=== PATIENT | female | born 1975 | race African-American/Black ===

== ENCOUNTER 2018-05-18 10:36 | Emergency (ER) | payer OTHER ==
[~2018-05-18] VITALS: Ht 167.6 cm; Wt 85.3 kg
--- NOTE | 2018-05-18 10:45 | NUR ---
Placed in room 4.
[2018-05-18 10:46] VITALS: BP_SYST 146
--- NOTE | 2018-05-18 10:55 | NUR ---
Pt presents to ER c/o episode of sudden-onset dizziness today while at work. Pt describes the dizziness as light-headedness and fatigue. Pt states that her symptoms have since resolved. Pt reports that this happened a month ago. Pt denies any palpitations, chest pain, shortness of breath, fevers, chills, nausea, vomiting, recent travel, or sick contacts.
--- NOTE | 2018-05-18 11:55 | NUR ---
ER Dr. Petty at bedside examining patient.
[2018-05-18 12:14] LABS: BILIRUBIN,URINE NEGATIVE (NEGATIVE); BLOOD, URINE TRACE (NEGATIVE); CLARITY/URINE CLEAR (CLEAR); COLOR,URINE YELLOW (YELLOW); GLUCOSE,URINE NEGATIVE (NEGATIVE); KETONES,URINE TRACE (NEGATIVE); LEUKOCYTE ESTERASE ,URINE NEGATIVE (NEGATIVE); NITRITE, URINE NEGATIVE (NEGATIVE); PROTEIN URINE NEGATIVE (NEGATIVE); UROBILINOGEN,URINE 0.2 (0.2-1.0)
[2018-05-18 12:29] LABS: HEMATOCRIT 40.6 % (36-48); LYMPHOCYTES % (AUTO) 24.7 % (20.5-51.5); MEAN CORPUSCULAR HEMOGLOBIN 24 pg (27-31); MEAN CORPUSCULAR HGB CONC 32 % (32-36); MEAN CORPUSCULAR VOLUME 75 fL (79.0-98.0); NEUTROPHILS % (AUTO) 68.4 % (40.0-70.0); PLATELET COUNT (AUTO) 399 K/uL (130-430); RED BLOOD CELL COUNT(AUTO) 5.43 MIL/uL (4.2-6.2); RED CELL DISTRIBUTION WIDTH 15.1 % (9.0-15.0); WHITE BLOOD COUNT (AUTO) 5.9 K/uL (4.8-10.8)
[2018-05-18 12:30] LABS: BASOPHILS % (AUTO) 0.5 % (0.0-2.0); EOSINOPHILS # (AUTO) 0.1 K/uL (0.0-0.4); LYMPHOCYTES # (AUTO) 1.5 K/uL (1.0-5.5); MONOCYTES # (AUTO) 0.3 K/uL (0.0-1.0); MONOCYTES % (AUTO) 5.4 % (1.7-9.3)
--- NOTE | 2018-05-18 12:40 | NUR ---
Medicated per MD orders. IVF infusing with no s/s of infiltration at this time. Will continue to monitor
[2018-05-18 12:41] LABS: ANION GAP 8 (5-15); CALCIUM 8.9 mg/dL (8.4-11.0); CHLORIDE 103 mmol/L (98-107); GLUCOSE 84 mg/dL (70-99); POTASSIUM 3.2 mmol/L (3.5-5.1); SODIUM SERUM 141 mmol/L (136-145)
[2018-05-18 12:42] LABS: BACTERIA,URINE RARE /HPF (None Seen); CREATININE 0.68 mg/dL (0.55-1.30); GFR AFRICAN AMERICAN 121 mL/min (>90); RBC,URINE 0-3 /HPF (0-3); UREA NITROGEN, BLOOD 10 mg/dL (8-21); WBC,URINE 0-3 /HPF (0-3)
[2018-05-18 12:43] LABS: MUCUS,URINE 1+ /LPF (None Seen)
[2018-05-18] MEDS: NACL 0.9% 1,000 ML IV ONE (12:43)
[2018-05-18 12:45] LABS: ALANINE AMINOTRANSFERASE 12 U/L (12-78); ALBUMIN 3.4 g/dL (3.4-4.8); ASPARTATE AMINOTRANSFERASE 14 U/L (10-37); TOTAL BILIRUBIN 0.5 mg/dL (0.0-1.0)
--- NOTE | 2018-05-18 13:10 | NUR ---
Pt resting on gurney, denies dizziness at this time, no signs of distress, will continue to monitor.
--- NOTE | 2018-05-18 14:05 | NUR ---
Dr. Petty at bedside speaking with pt.
[2018-05-18 14:25] VITALS: BP_SYST 136
== END 2018-05-18 14:25 | disposition home or self-care (01) ==
LOC: SED 10:36
DX: E86.0 Dehydration (principal); R03.0 Elevated blood-pressure reading, without diagnosis of hypertension; Z88.2 Allergy status to sulfonamides
CPT/HCPCS: 36415; 70450; 71045; 80053; 81000; 81025; 84484; 85025; 93005; 96360; 99284; J7030